=== PATIENT | female | born 1980 | race Caucasian/White ===

== ENCOUNTER 2017-05-07 05:52 | Inpatient (IN) | payer OTHER ==
[2017-05-06 13:40] LABS: ABS Basophils 0 10^3/ul (0-0.2); ABS Eosinophils 0.1 10^3/ul (0-0.6); ABS Lymphocytes 1.3 10^3/ul (1.0-4.8); ABS Monocytes 0.4 10^3/ul (0-0.8); ABS Neutrophils 6.8 10^3/ul (1.5-7.7); ABS Nucleated RBC 0 10^3/ul; Eosinophil % 1.1 % (0-6); Hematocrit 30 % (35-47); Hemoglobin 9.9 g/dl (12.0-16.0); Lymphocyte % 14.5 % (25-47); Mean Corpuscular HGB Conc 34 g/dl (31-36); Mean Corpuscular Hemoglobin 28 pg (27-31); Mean Corpuscular Volume 82 fL (80-97); Mean Platelet Volume 9 um3 (7.4-10.4); Nucleated Red Blood Cells % 0; Platelet Count 179 10^3/ul (150-450); Red Blood Count 3.61 10^6/ul (4.0-5.4); Red Cell Distribution Width 15 % (10.5-15); White Blood Count 8.7 10^3/ul (3.5-10.8)
--- NOTE | 2017-05-06 19:09 | HP ---
General Information - General Information Maternal Age: 36 Grav: 2 Para: 1 SAB: 0 IEA: 0 Estimated Due Date: 05/09/17 Determined By: Early Ultrasound Gestational Age in Weeks and Days: 39 Weeks and 4 Days Maternal Blood Type and Rh: O Positive - Results this Serology/RPR Result: Non-Reactive Rubella Result: Immune HBsAg Result: Negative HIV Result: Negative GBS Culture Result: Positive Past Medical History Delivery History: Hx C/Section Delivery History Comment: 2016 Full Term Section for Arrest descent, Female Infant weghing 10 lbs , 7oz. Pertinent Past Medical History: See Records Past Medical History Comment: induced hypertension, Migraine headaches, Herniated discs L5-S1, Obesity Pertinent Past Surgical History: See Records Pertinent Family History: See Records - Antepartal Records Antepartal Records: Reviewed, Complicated by: - Advanced Maternal Age , Obesity, Prior Section Review of Systems Constitutional: Comfortable CV Complaint: No Respiratory: Shortness of Breath: No Gastrointestinal: No Nausea/Vomiting, Normal Bowel Movement Genitourinary: No Dysuria, No Bleeding, No Leaking Fluid Musculoskeletal: No Complaint Neurological: No Headache, No Visual Changes Movement: Normal Exam Allergies/Adverse Reactions: Allergies morphine Allergy (Verified 05/06/17 19:13) Shortness of Breath Tree Nuts Allergy (Verified 05/06/17 13:44) Anaphylatic Shock Temp 98.7 BP 140/84 [id number] Lab Values - Entire Visit: Laboratory Tests 05/06/17 05/06/17 13:20 13:20 WBC 8.7 RBC 3.61 L Hgb 9.9 L Hct 30 L MCV 82 MCH 28 MCHC 34 RDW 15 Plt Count 179 MPV 9 Neut % (Auto) 78.8 Lymph % (Auto) 14.5 L Ellis % (Auto) 5.1 Eos % (Auto) 1.1 Baso % (Auto) 0.5 Absolute Neuts (auto) 6.8 Absolute Lymphs (auto) 1.3 Absolute Monos (auto) 0.4 Absolute Eos (auto) 0.1 Absolute Basos (auto) 0 Absolute Nucleated RBC 0 Nucleated RBC % 0 Blood Type O Positive Antibody Screen Negative - Measurements Height: 5 ft 9.5 in Weight: 290 lb Weight in lbs: 290 Body Mass Index (BMI): 42.2 Pre- Weight: 290 lb Weight Gained This : 0 lbs and 0 ozs - Exam Abdomen: No Upper Quadrant Pain Breast: Breast Exam Deferred CVA: No CVA Tenderness Extremities: No Edema Heart: Normal Rhythm/Heart Sounds HEENT: No Significant Findings Lungs: Clear Bilaterally Rectal: Rectal Exam Deferred Reflexes: DTR 2+ Thyroid: No Thyromegaly - Abdominal Exam Abdomen Exam: Non-Tender, Fundal Height Consistent with Dates - Membranes Membrane Status: Intact EFM Findings - External Monitor Findings Baseline Heart Rate: 140 Contractions: None - Exam done on 04/29/17 patient not in labor Assessment/Plan - Reason for Visit Reason for Visit: Intrauterine at 39 5/7 weeks with a prior Section, BMI 42, admitted for a planned Repeat Section - Obstetrical Risk Factors Obstetrical Risk Factors: GBS Positive, Obesity Risk Factors Comment: Iron Deficiency anemia - Date/Time of Admission Date of Admission: 05/07/17 Time of Admission: 07:00
[~2017-05-07 05:52] MED LIST: Buffered Lidocaine 0.9% SYRIN* 5 ML/SYR SYRINGE INTRADERM ONE
[2017-05-07] MEDS ORDERED: Sodium Citrate/Citric Acid* 15 ML UDC PO ONE (06:00)
[2017-05-07] MEDS ORDERED: Scopolamine 1.5 mg* PATCH TRANSDERM ONE (06:00)
[2017-05-07] MEDS ORDERED: Lidocaine 1% MPF* 2 ML VIAL ONE (07:06)
[2017-05-07] MEDS ORDERED: Morphine PF AMP (0.5MG/ML)* 5 MG/10 ML AMP ONE (07:40)
[2017-05-07] MEDS ORDERED: Dexamethasone IV* 4 MG/ML 1 ML (4 MG) ONE (07:42)
[2017-05-07] MEDS ORDERED: Ondansetron INJ* 2 MG/ML VIAL ONE (07:42)
[2017-05-07] MEDS ORDERED: OXYTOCIN* 10 UNITS/ML 1 ML VIAL ONE (07:42)
[2017-05-07] MEDS ORDERED: ceFOXitin 2 GM IVPREMIX* 2 GM/50 ML BAG IVPB ONE (07:45)
[2017-05-07] MEDS ORDERED: EPHEDrine (Pressors)* 50 MG/ML VIAL ONE (08:18)
[2017-05-07] MEDS ORDERED: Phenylephrine IV* 40 MCG/ML 10 ML SYRINGE ONE (08:21)
[2017-05-07] MEDS ORDERED: Witch Hazel PAD* JAR TOPICAL PRN (09:30)
[2017-05-07] MEDS ORDERED: Glycerin ADULT SUPP PR PRN (09:30)
[2017-05-07] MEDS ORDERED: Acetaminophen TAB* 325 MG PO PRN (09:30)
[2017-05-07] MEDS ORDERED: Zolpidem TAB* 5 MG PO PRN (09:30)
[2017-05-07] MEDS ORDERED: Dibucaine 1% 28.35 GM TUBE PR PRN (09:30)
[2017-05-07] MEDS ORDERED: fentaNYL* 50 MCG/ML 2 ML VIAL (100 MCG VIAL) IV PRN (09:36)
[2017-05-07] MEDS ORDERED: PROCHLORPERAZINE INJ 5 MG/ML 2 ML VIAL IV PRN ×2 (09:36→09:38)
[2017-05-07] MEDS ORDERED: Nalbuphine* 20 MG/ML 1 ML VIAL IV PRN ×2 (09:36→09:38)
[2017-05-07] MEDS ORDERED: Naloxone* 0.4 MG/ML 1 ML VIAL IV PRN ×2 (09:36→09:38)
[2017-05-07] MEDS ORDERED: oxyCODONE TAB* 5 MG TAB PO PRN ×2 (09:36→09:38)
[2017-05-07] MEDS ORDERED: Acetaminophen IV 1GM/100ML * 1,000 MG/100 ML VIAL IVPB ONE (09:36)
[2017-05-07] MEDS ORDERED: Scopolamine 1.5 mg* PATCH TRANSDERM PRN (09:38)
[2017-05-07] MEDS ORDERED: Ondansetron INJ* 2 MG/ML VIAL IV PRN (09:38)
[2017-05-07] MEDS ORDERED: Scopolamine PATCH Remove* 1 NOTE MISC PATCH OFF PRN (09:38)
[2017-05-07] MEDS ORDERED: Ketorolac INJ* 30 MG/ML 1 ML VIAL IV SCH (10:00)
[2017-05-07] MEDS: Docusate CAP* 100 MG PO SCH ×2 (13:51→21:20)
[2017-05-07] MEDS: Simethicone TAB* 80 MG TAB.CHEW PO SCH ×2 (13:51→21:20)
[2017-05-07] MEDS: Ketorolac INJ* 30 MG/ML 1 ML VIAL IV SCH ×2 (16:42→22:55)
[2017-05-08] MEDS: Acetaminophen TAB* 325 MG PO SCH ×2 (02:18→02:20)
[2017-05-08] MEDS: oxyCODONE/Acetamin 5/325 MG* TAB PO PRN ×4 (04:13→23:24)
[2017-05-08] MEDS: Ketorolac INJ* 30 MG/ML 1 ML VIAL IV SCH (04:47)
[2017-05-08 07:02] LABS: ABS Basophils 0 10^3/ul (0-0.2); ABS Eosinophils 0 10^3/ul (0-0.6); ABS Lymphocytes 1.5 10^3/ul (1.0-4.8); ABS Monocytes 0.9 10^3/ul (0-0.8); ABS Nucleated RBC 0 10^3/ul; Eosinophil % 0.3 % (0-6); Hematocrit 22 % (35-47); Hemoglobin 7.5 g/dl (12.0-16.0); Lymphocyte % 13.3 % (25-47); Mean Corpuscular HGB Conc 34 g/dl (31-36); Mean Corpuscular Hemoglobin 28 pg (27-31); Mean Corpuscular Volume 82 fL (80-97); Mean Platelet Volume 10 um3 (7.4-10.4); Nucleated Red Blood Cells % 0.1; Platelet Count 148 10^3/ul (150-450); Red Blood Count 2.66 10^6/ul (4.0-5.4); Red Cell Distribution Width 15 % (10.5-15); White Blood Count 11.6 10^3/ul (3.5-10.8)
[2017-05-08] MEDS: Ferrous Gluconate TAB* 324 MG TAB PO SCH ×2 (08:00→21:05)
[2017-05-08] MEDS: Simethicone TAB* 80 MG TAB.CHEW PO SCH ×4 (08:01→21:04)
[2017-05-08] MEDS: Docusate CAP* 100 MG PO SCH ×3 (09:09→21:05)
[2017-05-08] MEDS: Ibuprofen TAB* 600 MG PO PRN ×2 (15:03→21:03)
--- NOTE | 2017-05-09 01:14 | OP ---
DATE OF OPERATION: 05/07/17 - ROOM #116 DATE OF : 80 SURGEON: Anthony Merino MD SIGN ERECTOR SURGEON: Parrish Araiza MD ANESTHESIA: Spinal. PRE-OP DIAGNOSES: at 39 weeks, advanced maternal age, maternal obesity, and desires surgical sterilization. POST-OP DIAGNOSES: at 39 weeks, advanced maternal age, maternal obesity, and desires surgical sterilization. OPERATIVE PROCEDURE: Repeat low transverse section and bilateral tubal ligation via fimbriectomy. ESTIMATED BLOOD LOSS: 700 cc. FLUIDS: She received 2700 cc of IV crystalloid fluid. URINE OUTPUT: Clear. SPECIMEN SENT TO PATHOLOGY: Portions of the right and left fimbriae. FINDINGS: Delivery of a female weighing 9 pounds and 4 ounces with Apgars of 9 and 9. The placenta was grossly intact with a 3-vessel cord noted. The uterus, adnexa, bowel, and bladder were within normal limits. There were no complications. DESCRIPTION OF PROCEDURE: The patient was taken to the operating room, where she was identified. She was placed on the operating table, where a spinal anesthetic was obtained without difficulty. She was then placed in the supine position with a leftward tilt, prepped and draped in the normal sterile fashion. A Pfannenstiel skin incision was then made with a knife and carried through the underlying layer of fascia. The fascia was nicked in the midline and extended laterally with curved Staton scissors. The fascia was then grasped superiorly with Chen clamps and dissected off sharply from the rectus muscle. The same was done inferiorly. The rectus muscle was then in the midline bluntly. The peritoneum was identified, grasped with pickups, and entered sharply with Metzenbaum scissors, and extended superiorly, inferiorly bluntly. A bladder blade was inserted into the patient's abdomen and a bladder flap was created over which the bladder blade was then reinserted. A low transverse uterine incision was then made with a knife and extended laterally with bandage scissors. The amniotic sac was ruptured. The 's head was then grasped and delivered atraumatically. The rest of the body was then delivered. The cord was clamped and cut, and the was handed off to awaiting assistant public defender. Cord bloods were obtained. The placenta was removed manually. The uterus was then exteriorized and cleared of all clots and debris using moist laparotomy sponges. The uterine incision was then closed using 0 Polysorb suture in a running locked fashion with the second imbricating layer of 0 Polysorb suture with good hemostasis noted. At this point, attention was then brought on to fallopian tubes where the bilateral fimbriectomy was performed using 3-0 Polysorb sutures in a usual fashion and fimbriae were sent to Pathology. The uterus was then returned to the patient's abdomen. The gutters were then cleared of all clot and debris using moist laparotomy sponges. The uterine incision was noted to be clear. All the sponges and instruments were removed from the patient's abdomen. The peritoneum was then closed using 3-0 Polysorb suture in a running fashion. The fascia was closed using 0 Polysorb suture in a running fashion. Anabella's fascia was closed using 3 -0 Polysorb interrupted stitches, and the skin was closed with 4-0 Monocryl subcuticular stitch. The patient tolerated the procedure well. Sponge , lap, and needle counts were correct x2. She was then transferred to the recovery room area in stable condition. [id number]/[facility] #: [id number] [facility] HEALTH SYSTEMTammie
[2017-05-09] MEDS: oxyCODONE/Acetamin 5/325 MG* TAB PO PRN ×5 (03:19→22:19)
[2017-05-09] MEDS: Ibuprofen TAB* 600 MG PO PRN ×2 (03:19→09:41)
[2017-05-09] MEDS: Simethicone TAB* 80 MG TAB.CHEW PO SCH ×5 (08:45→22:18)
[2017-05-09] MEDS: Ferrous Gluconate TAB* 324 MG TAB PO SCH ×2 (08:45→22:18)
[2017-05-09] MEDS: Docusate CAP* 100 MG PO SCH ×3 (08:46→22:18)
[2017-05-10] MEDS: oxyCODONE/Acetamin 5/325 MG* TAB PO PRN ×2 (03:34→08:24)
[2017-05-10] MEDS ORDERED: Scopolamine PATCH Remove* 1 NOTE MISC PATCH OFF ONE (06:00)
[2017-05-10] MEDS: Ferrous Gluconate TAB* 324 MG TAB PO SCH (08:24)
[2017-05-10] MEDS: Docusate CAP* 100 MG PO SCH (08:24)
[2017-05-10] MEDS: Simethicone TAB* 80 MG TAB.CHEW PO SCH (08:24)
[2017-05-10 09:49] VITALS: BP 139/70
== END 2017-05-10 11:26 | disposition home or self-care (01) | DRG 540 ==
LOC: MCHOB 05:52
PROVIDERS: ADMIT Obstetrics & Gynecology; ATTEND Obstetrics & Gynecology
PROC: 4A1HXCZ Monitoring of Products of Conception, Cardiac Rate, External Approach (ICD-10-PCS; 2017-05-07)
PROC: 0UB70ZZ Excision of Bilateral Fallopian Tubes, Open Approach (ICD-10-PCS; 2017-05-07)
PROC: 10D00Z1 Extraction of Products of Conception, Low, Open Approach (ICD-10-PCS; principal; 2017-05-07 07:45)
DX: O34.211 Maternal care for low transverse scar from previous cesarean delivery (principal); Z68.41 Body mass index [BMI] 40.0-44.9, adult; E66.01 Morbid (severe) obesity due to excess calories; O99.824 Streptococcus B carrier state complicating childbirth; O99.214 Obesity complicating childbirth; Z3A.39 39 weeks gestation of pregnancy; Z37.0 Single live birth; Z88.5 Allergy status to narcotic agent; Z30.2 Encounter for sterilization; O90.81 Anemia of the puerperium
CPT/HCPCS: 36415; 85025; 86850; 86900; 86901; 88305; A9270-GY; J0694; J1100; J1885; J2405; J2590

== ENCOUNTER 2017-12-04 23:23 | Emergency (ER) | payer OTHER, MEDICAID ==
[2017-12-05] MEDS ORDERED: NS 0.9% 1000 ML* 1,000 ML IV ONE (00:09)
[2017-12-05] MEDS ORDERED: Ondansetron INJ* 2 MG/ML VIAL IV ONE (00:09)
[2017-12-05] MEDS ORDERED: Morphine VIAL* 10 MG/ML 1 ML VIAL IV ONE ×2 (00:39→00:41)
[2017-12-05 00:47] LABS: ABS Basophils 0 10^3/ul (0-0.2); ABS Eosinophils 0.1 10^3/ul (0-0.6); ABS Lymphocytes 1.1 10^3/ul (1.0-4.8); ABS Monocytes 0.5 10^3/ul (0-0.8); ABS Neutrophils 5.8 10^3/ul (1.5-7.7); ABS Nucleated RBC 0 10^3/ul; Eosinophil % 1.3 % (0-6); Hematocrit 35 % (35-47); Hemoglobin 11.7 g/dl (12.0-16.0); Lymphocyte % 15.3 % (25-47); Mean Corpuscular HGB Conc 33 g/dl (31-36); Mean Corpuscular Hemoglobin 28 pg (27-31); Mean Corpuscular Volume 84 fL (80-97); Mean Platelet Volume 8.9 um3 (7.4-10.4); Nucleated Red Blood Cells % 0; Platelet Count 224 10^3/ul (150-450); Red Cell Distribution Width 16 % (10.5-15); White Blood Count 7.5 10^3/ul (3.5-10.8)
[2017-12-05] MEDS ORDERED: Morphine INJ* 4 MG/ML 1 ML SYRINGE (NEW SYRINGE VERSION) IV ONE (01:00)
[2017-12-05 01:06] LABS: EGFR Non-African American 106.3 (>60)
[2017-12-05] MEDS ORDERED: Lidocaine 2% VISCOUS* 15 ML UDC PO ONE (01:45)
[2017-12-05] MEDS ORDERED: Al Hydrox/Mg Hydrox/Simet LIQ* 30 ML UDC PO ONE (01:46)
[2017-12-05] MEDS ORDERED: Iohexol 350* (CONTRAST) 500 ML MDV IV ONE (02:12)
--- NOTE | 2017-12-05 02:32 | ED ---
HPI Chest Pain - HPI Summary HPI Summary: Patient complains of sudden onset epigastric/sternal pain radiating to back at 10:45 PM tonight. Patient denies prior history of pain, describes pain as constant,, sharp, 8/10. Pain has been at same level since onset, associated with nausea and mild SOB. Denies prior cardiac history, history of blood clots , history of cancer, recent surgery or trauma, OCP or estrogen supplements, recent long travel. Denies recent chest pain or shortness of breath with exertion. Does admit to history of heartburn, GERD. Denies fever, cough, sore throat, V/D, abdominal pain, change in urine, change in BM. Medical history is none. Positive family cardiac history, mom had MN at 45. Abdominal surgical history is 1, BTL. Nonsmoker, denies EtOH, and recreational drugs. BP in triage 188/91, patient states baseline BP 120/80 - History of Current Complaint Chief Complaint: EDAbdPain Time Seen by Provider: 12/05/17 00:07 Hx Obtained From: Patient Hx Last Menstrual Period: 1 MONTH AGO Onset/Duration: Started Hours Ago Timing: Constant Initial Severity: Severe Current Severity: Severe Pain Intensity: 8 Pain Scale Used: 0-10 Numeric Chest Pain Location: Mid Sternal Chest Pain Radiates To:: Back Character: Sharp/Stabbing Aggravating Factor(s): Nothing Alleviating Factor(s): Nothing Associated Signs and Symptoms: Positive: Chest Pain, Shortness of Breath, Nausea , Back Pain - Risk Factors Pulmonary Embolism Risk Factors: Negative - Allergy/Home Medications Allergies/Adverse Reactions: Allergies Allergy/AdvReac Type Severity Reaction Status Date / Time Tree Nuts Allergy Anaphylatic Verified 12/04/17 23:33 Shock PMH/Surg Hx/FS Hx/Imm Hx Endocrine/Hematology History: Denies: Hx Anticoagulant Therapy, Hx Diabetes, Hx Thyroid Disease Cardiovascular History: Denies: Hx Cardiac Arrest, Hx Hypertension Respiratory History: Denies: Hx Asthma, Hx Chronic Obstructive Pulmonary Disease (COPD) GI History: Denies: Hx Ulcer History: Denies: Hx Dialysis, Hx Kidney Infection, Hx Renal Disease, Other Problems /Disorders Neurological History: Denies: Hx CVA Psychiatric History: Denies: Hx Anxiety, Hx Depression, Other Psychiatric Issues/Disorders - Surgical History Surgery Procedure, Year, and Place: 2005 Back Surgery Infectious Disease History: No Infectious Disease History: Denies: Hx Clostridium Difficile, Hx Hepatitis, Hx Human Immunodeficiency Virus (HIV), Hx of Known/Suspected MRSA, Hx Shingles, Hx Tuberculosis, Hx Known/ Suspected VRE, Hx Known/Suspected VRSA, History Other Infectious Disease, Traveled Outside the [place] in Last 30 Days - Social History Alcohol Use: None Substance Use Type: Reports: None Smoking Status (MU): Never Smoked Tobacco Have You Smoked in the Last Year: No Review of Systems Constitutional: Negative Eyes: Negative ENT: Negative Positive: Chest Pain Positive: Shortness Of Breath Gastrointestinal: Negative Genitourinary: Negative Musculoskeletal: Negative Skin: Negative Neurological: Negative Psychological: Normal All Other Systems Reviewed And Are Negative: Yes Physical Exam - Summary Physical Exam Summary: Chest pain reproducible. Tenderness along sternum and epigastric area. Triage Information Reviewed: Yes Vital Signs On Initial Exam: Initial Vitals Temp Pulse Resp BP Pulse Ox 97.0 F 80 16 188/91 100 12/04/17 23:28 12/04/17 23:28 12/04/17 23:28 12/04/17 23:28 12/04/17 23:28 Vital Signs Reviewed: Yes Appearance: Positive: Well-Appearing Skin: Positive: Warm Head/Face: Positive: Normal Head/Face Inspection Eyes: Positive: Normal Neck: Positive: Supple Respiratory/Lung Sounds: Positive: Clear to Auscultation Cardiovascular: Positive: Normal Abdomen Description: Positive: Nontender Musculoskeletal: Positive: Normal Neurological: Positive: Normal Psychiatric: Positive: Normal AVPU Assessment: Alert - Anthony Coma Scale Best Eye Response: 4 - Spontaneous Best Motor Response: 6 - Obeys Commands Best Verbal Response: 5 - Oriented Coma Scale Total: 15 Diagnostics - Vital Signs Vital Signs Temp Pulse Resp BP Pulse Ox 12/05/17 00:59 18 12/04/17 23:28 97.0 F 80 16 188/91 100 - Laboratory Lab Results: Lab Results 12/05/17 12/05/17 12/05/17 Range/Units 00:33 00:33 00:33 WBC 7.5 (3.5-10.8) 10^3/ul RBC 4.20 (4.00-5.40) 10^6/ul Hgb 11.7 L (12.0-16.0) g/dl Hct 35 (35-47) % MCV 84 (80-97) fL MCH 28 (27-31) pg MCHC 33 (31-36) g/dl RDW 16 H (10.5-15) % Plt Count 224 (150-450) 10^3/ul MPV 8.9 (7.4-10.4) um3 Neut % (Auto) 76.9 (38-83) % Lymph % (Auto) 15.3 L (25-47) % [place] % (Auto) 6.0 (0-7) % Eos % (Auto) 1.3 (0-6) % Baso % (Auto) 0.5 (0-2) % Absolute Neuts (auto) 5.8 (1.5-7.7) 10^3/ul Absolute Lymphs (auto) 1.1 (1.0-4.8) 10^3/ul Absolute Monos (auto) 0.5 (0-0.8) 10^3/ul Absolute Eos (auto) 0.1 (0-0.6) 10^3/ul Absolute Basos (auto) 0 (0-0.2) 10^3/ul Absolute Nucleated RBC 0 10^3/ul Nucleated RBC % 0 D-Dimer, Quantitative < 200 (Less Than 230) ng/mL Sodium 138 (135-145) mmol/L Potassium 4.0 (3.5-5.0) mmol/L Chloride 105 (101-111) mmol/L Carbon Dioxide 29 (22-32) mmol/L Anion Gap 4 (2-11) mmol/L BUN 25 H (6-24) mg/dL Creatinine 0.63 (0.51-0.95) mg/dL Est GFR ( Amer) 128.7 (>60) Est GFR (Non-Af Amer) 106.3 (>60) BUN/Creatinine Ratio 39.7 H (8-20) Glucose 112 H (70-100) mg/dL Calcium 9.1 (8.6-10.3) mg/dL Total Bilirubin 0.40 (0.2-1.0) mg/dL AST 64 H (13-39) U/L ALT 40 (7-52) U/L Alkaline Phosphatase 108 H (34-104) U/L Troponin I 0.00 (<0.04) ng/mL C-Reactive Protein 5.97 (<8.01) mg/L Total Protein 7.1 (6.4-8.9) g/dL Albumin 4.1 (3.2-5.2) g/dL Globulin 3.0 (2-4) g/dL Albumin/Globulin Ratio 1.4 (1-3) Lipase 17 (11.0-82.0) U/L TSH (0.34-5.60) mcIU/mL Beta HCG, Quant < 0.60 mIU/mL 12/05/17 Range/Units 00:33 WBC (3.5-10.8) 10^3/ul RBC (4.00-5.40) 10^6/ul Hgb (12.0-16.0) g/dl Hct (35-47) % MCV (80-97) fL MCH (27-31) pg MCHC (31-36) g/dl RDW (10.5-15) % Plt Count (150-450) 10^3/ul MPV (7.4-10.4) um3 Neut % (Auto) (38-83) % Lymph % (Auto) (25-47) % [place] % (Auto) (0-7) % Eos % (Auto) (0-6) % Baso % (Auto) (0-2) % Absolute Neuts (auto) (1.5-7.7) 10^3/ul Absolute Lymphs (auto) (1.0-4.8) 10^3/ul Absolute Monos (auto) (0-0.8) 10^3/ul Absolute Eos (auto) (0-0.6) 10^3/ul Absolute Basos (auto) (0-0.2) 10^3/ul Absolute Nucleated RBC 10^3/ul Nucleated RBC % D-Dimer, Quantitative (Less Than 230) ng/mL Sodium (135-145) mmol/L Potassium (3.5-5.0) mmol/L Chloride (101-111) mmol/L Carbon Dioxide (22-32) mmol/L Anion Gap (2-11) mmol/L BUN (6-24) mg/dL Creatinine (0.51-0.95) mg/dL Est GFR ( Amer) (>60) Est GFR (Non-Af Amer) (>60) BUN/Creatinine Ratio (8-20) Glucose (70-100) mg/dL Calcium (8.6-10.3) mg/dL Total Bilirubin (0.2-1.0) mg/dL AST (13-39) U/L ALT (7-52) U/L Alkaline Phosphatase (34-104) U/L Troponin I (<0.04) ng/mL C-Reactive Protein (<8.01) mg/L Total Protein (6.4-8.9) g/dL Albumin (3.2-5.2) g/dL Globulin (2-4) g/dL Albumin/Globulin Ratio (1-3) Lipase (11.0-82.0) U/L TSH 1.47 (0.34-5.60) mcIU/mL Beta HCG, Quant mIU/mL Result Diagrams: 12/05/17 00:33 12/05/17 00:33 Lab Statement: Any lab studies that have been ordered have been reviewed, and results considered in the medical decision making process. Chest Pain Course/Dx - Course Course Of Treatment: Patient complains of sudden onset epigastric/sternal pain radiating to back at 10:45 PM tonight. Patient denies prior history of pain, describes pain as constant,, sharp, 8/10. Pain has been at same level since onset, associated with nausea and mild SOB. Denies prior cardiac history, history of blood clots, history of cancer, recent surgery or trauma, OCP or estrogen supplements, recent long travel. Denies recent chest pain or shortness of breath with exertion. Does admit to history of heartburn, GERD. Denies fever, cough, sore throat, V/D, abdominal pain, change in urine, change in BM. Medical history is none. Positive family cardiac history, mom had MN at 45. Abdominal surgical history is 1, BTL. Nonsmoker, denies EtOH , and recreational drugs. BP in triage 188/91, patient states baseline BP 120/ 80. Physical exam:Chest pain reproducible. Tenderness along sternum and epigastric area. After initial elevated BP, vital signs are now within normal limits. Chest x-ray unremarkable. Labs unremarkable, including lipase. EKG unremarkable. Will sign patient out to Dr. Brarios pending results of CTA. - Diagnoses Provider Diagnoses: Cholelithiasis Discharge - Sign-Out/Discharge Documenting (check all that apply): Sign-Out Patient Signing out patient TO: Mari Barrios - Discharge Plan Condition: Stable Disposition: HOME Prescriptions: Metoclopramide TAB* [Reglan TAB*] 10 mg PO Q6H PRN #14 tab PRN Reason: Nausea/Vomiting oxyCODONE/Acetamin 5/325 MG* [Percocet 5/325 TAB*] 1 tab PO Q6H PRN #14 tab MDD 4 PRN Reason: Pain Patient Education Materials: Gallstones (ED) Referrals: Mukesh Bach MD [Medical Doctor] - 2 Days Additional Instructions: RETURN TO THE EMERGENCY DEPARTMENT FOR CHANGING OR WORSENING SYMPTOMS. FOLLOW UP WITH SURGEON IN 1-2 DAYS. - Billing Disposition and Condition Condition: STABLE Disposition: Home
--- NOTE | 2017-12-05 03:01 | RAD ---
EXAM: CT Angiography Chest With Intravenous Contrast CLINICAL HISTORY: 37 years old, female; Pain; Other: Epigastric radiating to back; Abdominal pain; Prior surgery; Surgery date: 6+ months; Surgery type: Back SX; Additional info: Epigastric pain radiating to back, elevated BP TECHNIQUE: Axial computed tomographic angiography images of the chest with intravenous contrast using pulmonary embolism protocol. All CT scans at this facility use at least one of these dose optimization techniques: automated exposure control; mA and/or kV adjustment per patient size (includes targeted exams where dose is matched to clinical indication); or iterative reconstruction. 3D and MIP reconstructed images were created and reviewed. Coronal and sagittal reformatted images were created and reviewed. CONTRAST: 100 mL of OMNIPAQUE 350 administered intravenously. COMPARISON: No relevant prior studies available. FINDINGS: Pulmonary arteries: Pulmonary arteries are well opacified to the subsegmental branches. Normal caliber main pulmonary artery. No filling defects throughout the pulmonary artery tree. Aorta: Normal caliber aorta with no evidence of dissection or rupture. Lungs: No pulmonary nodules, masses, or consolidations. No bronchiectasis, peribronchial thickening, or luminal defects. Pleural space: Normal. No significant effusion. No pneumothorax. Heart: Normal. No cardiomegaly. No significant pericardial effusion. No evidence of RV dysfunction. Thyroid: No thyroid nodules. Bones/joints: No fractures. No suspicious bone lesions. No dislocation. Soft tissues: Normal. Lymph nodes: Normal. No enlarged lymph nodes. IMPRESSION: 1. No aortic aneurysm, dissection, or rupture. 2. No pulmonary emboli. EXAM: CT Angiography Abdomen and Pelvis With Intravenous Contrast CLINICAL HISTORY: 37 years old, female; Pain; Other: Epigastric radiating to back; Abdominal pain; Prior surgery; Surgery date: 6+ months; Surgery type: Back SX; Additional info: Epigastric pain radiating to back, elevated BP TECHNIQUE: Axial computed tomographic angiography images of the abdomen and pelvis with intravenous contrast. All CT scans at this facility use at least one of these dose optimization techniques: automated exposure control; mA and/or kV adjustment per patient size (includes targeted exams where dose is matched to clinical indication); or iterative reconstruction. 3D and MIP reconstructed images were created and reviewed. Coronal and sagittal reformatted images were created and reviewed. CONTRAST: 100 mL of OMNIPAQUE 350 administered intravenously. 100 mL of OMNIPAQUE 350 administered intravenously. COMPARISON: No relevant prior studies available. FINDINGS: VASCULATURE: Aorta: Normal caliber aorta with no evidence of dissection or rupture. Celiac trunk and mesenteric arteries: Normal. No occlusion or stenosis. Renal arteries: Normal. No occlusion or significant stenosis. Iliac arteries: Normal. No occlusion or stenosis. Inferior vena cava: Patent IVC. Lung bases: Normal. No mass. No consolidation. ABDOMEN: Liver: Normal hepatic size and attenuation with no focal lesions. Gallbladder and bile ducts: Multiple gas containing gallstones. No wall thickening or pericholecystic fluid. No intra-or extrahepatic biliary dilation. Pancreas: Normal. No ductal dilation. No mass. Spleen: Normal. No splenomegaly. Adrenals: Normal. No mass. Kidneys and ureters: Normal. No hydronephrosis. No solid mass. Stomach and bowel: Incompletely distended grossly normal stomach. Normal caliber small bowel. No colonic masses or segmental wall thickening. PELVIS: Appendix: Normal caliber appendix without wall thickening or adjacent inflammation. Bladder: Thin-walled bladder with no focal nodularity, perivesicular stranding, or calcifications. Reproductive: Right ovarian cyst measuring 3.5 cm which does not measure simple fluid. Normal uterus and left ovary ABDOMEN and PELVIS: Intraperitoneal space: Normal. No significant fluid collection. No free air. Bones/joints: Right L5 laminectomy with L5-S1 discectomy. No fractures. No suspicious bone lesions. No dislocation. Soft tissues: Normal. No hernias. Lymph nodes: Normal. No enlarged lymph nodes. IMPRESSION: 1. No aortic aneurysm, dissection, or rupture. 2. Cholelithiasis. 3. Right ovarian likely hemorrhagic cyst. ACR White Paper guidelines (Weiss, et. al. JACR 2013; 10(9):675-681) suggest pelvic ultrasound follow-up in 6-12 weeks. To contact [facility] with a general question: Operations Center - [phone] For direct physician to physician contact: Physician Hotline - [phone] at [place] ([facility] Facility ID #[id number])
--- NOTE | 2017-12-05 04:20 | ED ---
Progress - Progress Note Progress Note: Pt was signed out by Ethan Pickett to Dr. Barrios, pending CTA results. - Results/Orders Results/Orders: C/A/P CTA, as per radiologist, 1. No aortic aneurysm, dissection, or rupture. 2. Cholelithiasis. ED Physician has reviewed this report Course/Dx - Course Course Of Treatment: CTA confirms cholelithiasis. Pt will be discharged home and advised to see a surgeon. Pt will be sent home with a prescription for Oxycodone and Metoclopramide. Patient is agreeable with this plan. - Diagnoses Provider Diagnoses: Cholelithiasis Discharge - Sign-Out/Discharge Documenting (check all that apply): Patient Departure - discharge, Receiving Sign-Out Receiving patient FROM: Ethan Pickett - Discharge Plan Condition: Stable Disposition: HOME Prescriptions: Metoclopramide TAB* [Reglan TAB*] 10 mg PO Q6H PRN #14 tab PRN Reason: Nausea/Vomiting oxyCODONE/Acetamin 5/325 MG* [Percocet 5/325 TAB*] 1 tab PO Q6H PRN #14 tab MDD 4 PRN Reason: Pain Patient Education Materials: Gallstones (ED) Referrals: Mukesh Bach MD [Medical Doctor] - 2 Days Additional Instructions: RETURN TO THE EMERGENCY DEPARTMENT FOR CHANGING OR WORSENING SYMPTOMS. FOLLOW UP WITH SURGEON IN 1-2 DAYS. - Attestation Statements Document Initiated by Scribe: Yes Documenting Scribe: Richard Doshi Provider For Whom Scribe is Documenting (Include Credential): Mari Barrios MD Scribe Attestation: Richard Watkins, scribed for Mari Barrios MD on 12/05/17 at 0417.
[2017-12-05 04:31] VITALS: BP 146/93
--- NOTE | 2017-12-05 07:41 | RAD ---
HISTORY: cp, sob COMPARISONS: April 21, 2013 VIEWS: 1: frontal AP view of the chest at 12:40 AM FINDINGS: LINES AND TUBES: None. CARDIOMEDIASTINAL SILHOUETTE: The cardiomediastinal silhouette is normal for portable technique. PLEURA: The costophrenic angles are sharp. No pleural abnormalities are noted. LUNG PARENCHYMA: The lung volumes are low. The lungs are clear accounting for the phase of respiration. ABDOMEN: The upper abdomen is clear. There is no subphrenic gas. BONES AND SOFT TISSUES: No bone or soft tissue abnormalities are noted. IMPRESSION: LOW LUNG VOLUMES. NO ACTIVE CARDIOPULMONARY DISEASE. R1
== END 2017-12-05 04:33 | disposition home or self-care (01) ==
LOC: ED 23:23
DX: K80.20 Calculus of gallbladder without cholecystitis without obstruction (principal); R10.13 Epigastric pain; R07.9 Chest pain, unspecified; R06.02 Shortness of breath; R11.0 Nausea; M54.9 Dorsalgia, unspecified
CPT/HCPCS: 36415; 71045; 71275; 74174; 80053; 83690; 83880; 84443; 84484; 84702; 85025; 85379; 86140; 93005; 96361; 96374; 96375; 99283; J2270; J2405; Q9967

== ENCOUNTER → 2017-12-24 09:04 | Day surgery (SDC) | payer OTHER, MEDICAID ==
[~2017-12-24 09:04] MED LIST changes: +Bupivacaine 0.25% SDV* 30 ML ONE; +Cisatracurium* 2 MG/ML MDV 5 ML ONE; +Dexamethasone IV* 4 MG/ML 1 ML (4 MG) ONE; +DiMENhydriNATE IV* 50 MG/ML VIAL IV PUSH PRN; +Famotidine IV* 10 MG/ML 2 ML (20 mg) IV ONE; +Famotidine IV* 10 MG/ML 2 ML (20 mg) ONE; +Glycopyrrolate IV* 0.2 MG/ML 1 ML VIAL ONE; +HYDROmorphone INJ1* 1 MG/ML SYRINGE IV PRN; +HYDROmorphone INJ1* 1 MG/ML SYRINGE ONE; +KETAMINE HCL* 50 MG/ML 10 ML VIAL ONE; +Ketorolac INJ* 30 MG/ML 1 ML VIAL ONE; +Lidocaine 2% PF * 5 ML VIAL ONE; +Metoclopramide IV* 5 MG/ML 2 ML VIAL ONE; +Midazolam* 1 MG/ML 5 ML VIAL (5 MG) ONE; +Naloxone* 0.4 MG/ML 1 ML VIAL IV PRN; +Neostigmine Methylsulfate* 1 MG/ML 10 ML VIAL (1 mg/ml) ONE; +Ondansetron INJ* 2 MG/ML VIAL IV PRN; +Ondansetron INJ* 2 MG/ML VIAL ONE; +Propofol* 10 MG/ML 20 ML BTL IV PUSH ONE; +ceFOXitin 2 GM IVPREMIX* 2 GM/50 ML BAG ONE; +fentaNYL* 50 MCG/ML 2 ML VIAL (100 MCG VIAL) IV PRN; +fentaNYL* 50 MCG/ML 2 ML VIAL (100 MCG VIAL) ONE; +oxyCODONE/Acetamin 5/325 MG* TAB ONE; +oxyCODONE/Acetamin 5/325 MG* TAB PO PRN
--- NOTE | 2017-12-24 13:32 | OP ---
Operative Report - Blank - Operative Report Date of Operation: 12/24/17 Note: Brief Operative Note Preop Dx: symptomatic cholelithiasis Postop Dx: same Procedure: laparoscopic cholecystectomy Anesthesia: GET Surgeon: Maldonado Derivatives Trader: JOSHUA Bowen Fluids: 1750 ml crystalloid EBL: < 100 ml Specimen: gallbladder Drains: none Findings: dictated
[2017-12-24 15:01] VITALS: BP 153/95
--- NOTE | 2017-12-25 08:39 | OP ---
CC: Sharita Boland MD * DATE OF OPERATION: 12/24/17 - [facility] DATE OF : 80 SURGEON: Albaro Okeefe MD HOME OFFICE CLAIM SPECIALIST: JOSHUA Pak ANESTHESIOLOGIST: Get De La O MD ANESTHESIA: General endotracheal. PRE-OP DIAGNOSIS: Symptomatic cholelithiasis. POST-OP DIAGNOSIS: Symptomatic cholelithiasis. OPERATIVE PROCEDURE: Laparoscopic cholecystectomy. ESTIMATED BLOOD LOSS: Less than 100 mL. IV FLUIDS: 1.75 L of crystalloid. SPECIMENS: Gallbladder. DRAINS: None. COMPLICATIONS: None. COUNTS: The instrument, needle, and sponge counts were correct. DESCRIPTION OF PROCEDURE: The patient was brought to the operating room and placed on table supine. Sequential compression devices were placed on both lower extremities. General anesthesia was administered. She was positioned and padded appropriately. She had received appropriate intravenous antibiotics. She was prepped and draped in the usual sterile fashion and then time-out was performed. Local anesthetic was infiltrated into the skin and soft tissue prior to making each incision. Entry into the abdomen was through an infraumbilical incision using an open technique. After accessing the peritoneal cavity, a 5-mm trocar was placed and carbon dioxide was insufflated to a pressure of 15 mmHg. Under direct visualization, additional 5-mm trocars were placed in the subxiphoid position and 2 in the right upper quadrant. The initial trocar in the umbilical site was exchanged for a 12-mm trocar. Indocyanine green injection had been performed prior to the surgery. This enabled visualization of the biliary system during the case. The gallbladder was identified. The fundus was retracted cephalad. The infundibulum was identified, it was grasped and elevated and blunt and sharp dissection were used to incise the peritoneum investing the infundibular area. There appeared to be a fold at the infundibulum and this was taken down using a combination of sharp and blunt techniques and dissection proceeded along the cystic duct until a critical view was obtained. The cystic artery was also able to be dissected out bluntly. This was doubly clipped and divided. The cystic duct was doubly clipped and divided and the gallbladder was freed from attachments to the liver using the hook cautery, staying in an avascular plane. At one point, the gallbladder was entered and spillage was controlled with placement of endoscopic clips as well as endoscopic suction. After the gallbladder was freed, it was placed in an endoscopic retrieval bag and retrieved through the umbilical site. Hemostasis was assured in the liver bed, the clips were noted to be intact as well. Copious lavage was performed in the right upper quadrant until clear. The ports were removed under direct visualization and carbon dioxide was released. The infraumbilical wound was closed with interrupted 0 Vicryl suture. Skin incisions were closed with 4-0 Monocryl. Steri-Strips were applied. The patient was extubated uneventfully and transferred to the recovery room in stable condition. [id number]/[facility] #: [id number] ROBER
== END | disposition home or self-care (01) ==
LOC: OR 09:04
PROVIDERS: ATTEND Surgery
DX: K80.10 Calculus of gallbladder with chronic cholecystitis without obstruction (principal); K21.9 Gastro-esophageal reflux disease without esophagitis; J30.2 Other seasonal allergic rhinitis; Z85.820 Personal history of malignant melanoma of skin
CPT/HCPCS: 81025; 88304; A9270-GY; J0694; J1100; J1170; J1885; J2250; J2405; J2704; J2710; J2765; J3010

== ENCOUNTER → 2018-01-08 18:18 | Emergency (ER) | payer OTHER, MEDICAID ==
[~2018-01-08 18:18] MED LIST changes: -Buffered Lidocaine 0.9% SYRIN* 5 ML/SYR SYRINGE INTRADERM ONE; -Bupivacaine 0.25% SDV* 30 ML ONE; -Cisatracurium* 2 MG/ML MDV 5 ML ONE; -Dexamethasone IV* 4 MG/ML 1 ML (4 MG) ONE; -DiMENhydriNATE IV* 50 MG/ML VIAL IV PUSH PRN; -Famotidine IV* 10 MG/ML 2 ML (20 mg) IV ONE; -Famotidine IV* 10 MG/ML 2 ML (20 mg) ONE; -Glycopyrrolate IV* 0.2 MG/ML 1 ML VIAL ONE; -HYDROmorphone INJ1* 1 MG/ML SYRINGE IV PRN; -HYDROmorphone INJ1* 1 MG/ML SYRINGE ONE; +Iohexol 300* (CONTRAST) 10 ML SDV IV ONE; -KETAMINE HCL* 50 MG/ML 10 ML VIAL ONE; +Ketorolac INJ* 30 MG/ML 1 ML VIAL IV PUSH ONE; -Ketorolac INJ* 30 MG/ML 1 ML VIAL ONE; -Lidocaine 2% PF * 5 ML VIAL ONE; -Metoclopramide IV* 5 MG/ML 2 ML VIAL ONE; -Midazolam* 1 MG/ML 5 ML VIAL (5 MG) ONE; -Naloxone* 0.4 MG/ML 1 ML VIAL IV PRN; -Neostigmine Methylsulfate* 1 MG/ML 10 ML VIAL (1 mg/ml) ONE; +Omeprazole CAP* 20 MG PO ONE; +Ondansetron INJ* 2 MG/ML VIAL IV ONE; -Ondansetron INJ* 2 MG/ML VIAL IV PRN; -Ondansetron INJ* 2 MG/ML VIAL ONE; +Pantoprazole IV* 40 MG IV ONE; -Propofol* 10 MG/ML 20 ML BTL IV PUSH ONE; -ceFOXitin 2 GM IVPREMIX* 2 GM/50 ML BAG ONE; -fentaNYL* 50 MCG/ML 2 ML VIAL (100 MCG VIAL) IV PRN; -fentaNYL* 50 MCG/ML 2 ML VIAL (100 MCG VIAL) ONE; -oxyCODONE/Acetamin 5/325 MG* TAB ONE; -oxyCODONE/Acetamin 5/325 MG* TAB PO PRN
--- OUTSIDE RECORDS SUMMARY | 2018-01-08 18:30 | XMS REPORT ---
:1980 External Reference #:[id number] Author Organization [employer] Address [address] [place] [address] [place] [address] Phone [phone] Care Team Providers Name Role Phone Sharita Boland MD Primary Care Physician Unavailable Payers Type Date Identification Numbers Payment Provider Subscriber Commercial Policy Number: [id number] [facility] Nenita Weber Group Number: [id number] [facility] [id number] Group Name: [employer] [place] [address] PayID: [id number] Problems Description No Information Family History Date Family Member(s) Problem(s) Comments General Diabetes General Hypertension General Heart Disease General Cancer Social History Type Date Description Comments Marital Status Lives With Spouse 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 Multiple 0000/0 Active Tablets 1 by mouth Unknown Vitamin 000 every day Allergy 24-HR 0000/0 Active Tablets 1 tb daily Unknown 000 Vital Signs Date Vital Result Comment 12/31/2017 Heart Rate 72 /min BP Systolic Sitting 116 mmHg BP Diastolic Sitting 84 mmHg Respiratory Rate 18 /min Body Temperature 97.7 F 12/06/2017 Height 70 inches 5'10" Weight 305.00 lb Heart Rate 76 /min BP Systolic 130 mmHg BP Diastolic 80 mmHg Respiratory Rate 18 /min Body Temperature 97.9 F BMI (Body Mass Index) 43.8 kg/m2 Results Test Date Test Result H/L Range Note Laboratory test 12/24/2017 Surgical Pathology SEE RESULT BELOW 1 finding Wound Culture/Sensi 05/23/2017 Wound/Misc SEE RESULT BELOW 2 Culture-Gram Stain 1 SEE RESULT BELOW Name: NENITA WEBER : [address]: Albaro Okeefe MD Acct: [id number] Unit: [id number] AGE: 37 Location: OR Re12/24/17 SEX: F Status: [place] [facility] [place]C: [id number] [place]: 12/24/17-[address] [facility] [address]: Albaro Okeefe MD REQ: [id number] RECD: 12/24/17 STATUS: SOUT _ ORDERED: LEVEL 3 FINAL DIAGNOSIS Gallbladder, cholecystectomy: -- Chronic cholecystitis. -- Cholelithiasis. PRE-OPERATIVE DIAGNOSIS Calculus of gallbladder without cholecystitis or obstruction GROSS DESCRIPTION The specimen is received in formalin labeled, Gallbladder and Contents, and consists of a 10.8 x 3.2 x 2.7 cm focally disrupted gallbladder. The serosa is glistening smooth to wrinkled bobby-pink to green. Within the lumen there are a few yellow-brown ovoid smooth to focally bosselated choleliths ranging from 0.6 cm to 1.0 cm in greatest dimension admixed with green yellow viscid bile. The mucosa is velvety to focally reticulated bobby and the wall thickness averages 0.1 cm. Wood Carver sections, one cassette. Signed by and Reported on: Sparkle Sheehan MD 12/25/17 1556 END OF REPORT DEPARTMENT OF PATHOLOGY, [address] [place] [address] Juan Quesada M.D. Director [facility] # [id number] 2 SEE RESULT BELOW Name: NENITA WEBER : [address]: Juventino Guerin MD Acct: [id number] Unit: [id number] AGE: 36 Location: WOUND Re05/23/17 SEX: F Status: REG REF SPEC: [id number] [place]: 05/23/[address] [facility] [address]: Juventino Guerin MD REQ: [id number] RECD: 05/23/17 STATUS: BHARGAVI WREN DR: Sharita Boland MD _ SOURCE: WOUND SPDESC: ORDERED: Culture Stain Procedure Result Reported Site Wound/Misc Gram Stain Final 05/23/17- 1306 ML 1+ Epithelial Cells 4+ Neutrophils 3+ Nucleated Cells 1+ Gram Positive Cocci Wound/Misc Culture Final 05/25/17- 1122 ML Organism 1 STREP AGALACTIAE - (GROUP B) Quantity 1+ 1. STREP AGALACTIAE - (GROUP B) M.I.C. RX --------- ------ Ampicillin <=0.25 S Penicillin <=0.12 S Clindamycin R This isolate is presumed to be resistant based on detection of inducible Clindamycin resistance. Clindamycin may still be effective in some patients. Levofloxacin 1 S Linezolid 2 S * Moxifloxacin <=0.25 S * Quinupristin/Dalfopristin <=0.25 S Tetracycline >=16 R Tigecycline <=0.12 S Vancomycin <=0.5 S Imipenem-Deduced S * Ampicillin/Sulbactam-Deduced S CONTINUED ON NEXT PAGE DEPARTMENT OF PATHOLOGY, [address] [place] [address] Juan Quesada M.D. Director [facility] # [id number] Patient: NENITA WEBER [id number] (Continued) Specimen: [id number] Collected: 05/23/17-1114 Received: 05/23/17-114 (Continued) Procedure Result Reported Site Wound/Misc Culture Final (continued) 05/25/17- 1121 1. STREP AGALACTIAE - (GROUP B) (continued) M.I.C. RX --------- ------ Cefazolin-Deduced S * These antibiotics are not available in the [facility] Formulary Contact the Microbiology Department for any additional antibiotic reporting. * ML - Main Lab . END OF REPORT DEPARTMENT OF PATHOLOGY, [address] [place] [address] Juan Quesada M.D. Director [facility] # [id number] Procedures Description No Information Encounters Type Date Location Provider [facility] E/M Dx Office Visit 12/06/2017 [place], [address] K80.20 10:45a [facility] FACS Office Visit 06/11/2017 [facility] Juventino Guerin, [address] T81.32xD 10:30a [facility] B35.4 O90.81 Office Visit 06/04/2017 10:00a [facility] Juventino Guerin, [address] T81.32xA AT [facility] O90.81 B35.4 Office Visit 05/28/2017 10:15a [facility] Ju[place]ino Guerin [address] T81.32xA AT [facility] B35.4 O90.81 Office Visit 05/23/2017 10:45a [facility] Juventino Guerin [address] T81.32xA AT [facility] B35.4 O90.81 Office Visit 05/16/2017 2:45p [facility] Ju[facility]ino Guerin, [address] T81.32xA AT [facility] Claus O90.81 Plan of Care No Information Available
[2018-01-08 19:41] LABS: Urine Appearance Cloudy; Urine Blood Negative (Negative); Urine Color Yellow; Urine Ketones Negative (Negative); Urine Protein Negative (Negative); Urine Red Blood Cell Trace(0-2/hpf) (Absent); Urine Specific Gravity 1.011 (1.010-1.030); Urine Urobilinogen Negative (Negative); Urine White Blood Cell Trace(0-5/hpf) (Absent)
[2018-01-08 19:52] LABS: ABS Basophils 0 10^3/ul (0-0.2); ABS Eosinophils 0.1 10^3/ul (0-0.6); ABS Monocytes 0.7 10^3/ul (0-0.8); ABS Neutrophils 10.7 10^3/ul (1.5-7.7); ABS Nucleated RBC 0 10^3/ul; Eosinophil % 0.8 % (0-6); Hematocrit 39 % (35-47); Hemoglobin 12.8 g/dl (12.0-16.0); Lymphocyte % 8.2 % (25-47); Mean Corpuscular HGB Conc 33 g/dl (31-36); Mean Corpuscular Hemoglobin 28 pg (27-31); Mean Corpuscular Volume 85 fL (80-97); Nucleated Red Blood Cells % 0; Platelet Count 213 10^3/ul (150-450); Red Blood Count 4.54 10^6/ul (4.00-5.40); Red Cell Distribution Width 16 % (10.5-15); White Blood Count 12.5 10^3/ul (3.5-10.8)
[2018-01-08 20:18] LABS: EGFR Non-African American 132.7 (>60)
--- NOTE | 2018-01-08 20:55 | ED ---
GI/ HPI - HPI Summary HPI Summary: 37-year-old female presents with epigastric pain today. She also states she has been having chest pain and shortness of breath. She states the pain radiates to her back. She states feels similar to before she had her gallbladder removed. States she had her gallbladder removed 2 weeks ago. She denies any fevers. Admits to nausea but no vomiting. She admits to heartburn. No diarrhea or constipation. She has a follow-up with the surgeon tomorrow. Has had a normal appetite. No blood in her stool. Is not on control. no rash. No pain or swelling in calf muscles. No recent travel. - History of Current Complaint Chief Complaint: EDChestWallPain Time Seen by Provider: 01/08/18 18:38 Stated Complaint: CHEST/BACK PAIN/SOB/NAUSEA Hx Last Menstrual Period: 1 MONTH AGO Pain Intensity: 10 - Allergy/Home Medications Allergies/Adverse Reactions: Allergies Allergy/AdvReac Type Severity Reaction Status Date / Time Tree Nuts Allergy Severe Anaphylatic Verified 01/08/18 18:41 Shock PMH/Surg Hx/FS Hx/Imm Hx Endocrine/Hematology History: Denies: Hx Anticoagulant Therapy, Hx Diabetes, Hx Thyroid Disease Cardiovascular History: Denies: Hx Cardiac Arrest, Hx Hypertension Respiratory History: Denies: Hx Asthma, Hx Chronic Obstructive Pulmonary Disease (COPD) GI History: Denies: Hx Gastroesophageal Reflux Disease - r/t gall bladder, Hx Ulcer History: Denies: Hx Dialysis, Hx Kidney Infection, Hx Renal Disease, Other Problems /Disorders Sensory History: Reports: Hx Contacts or Glasses - night driving Denies: Hx Hearing Aid Opthamlomology History: Reports: Hx Contacts or Glasses - night driving Neurological History: Reports: Hx Migraine - takes excedrin migraine Denies: Hx CVA Psychiatric History: Denies: Hx Anxiety, Hx Depression, Other Psychiatric Issues/Disorders - Cancer History Hx Chemotherapy: No - Surgical History Surgery Procedure, Year, and Place: 2004 Back Surgery. . cholecystectomy Hx Anesthesia Reactions: No - just some nausea - Immunization History Immunizations Up to Date: Yes Infectious Disease History: No Infectious Disease History: Denies: Hx Clostridium Difficile, Hx Hepatitis, Hx Human Immunodeficiency Virus (HIV), Hx of Known/Suspected MRSA, Hx Shingles, Hx Tuberculosis, Hx Known/ Suspected VRE, Hx Known/Suspected VRSA, History Other Infectious Disease, Traveled Outside the [place] in Last 30 Days - Social History Alcohol Use: None Substance Use Type: Reports: None Smoking Status (MU): Never Smoked Tobacco Have You Smoked in the Last Year: No Review of Systems Negative: Fever Positive: Chest Pain Positive: Shortness Of Breath Positive: Abdominal Pain, Nausea. Negative: Vomiting, Diarrhea All Other Systems Reviewed And Are Negative: Yes Physical Exam Triage Information Reviewed: Yes Vital Signs On Initial Exam: Initial Vitals Temp Pulse Resp BP Pulse Ox 98.1 F 76 16 158/90 99 01/08/18 18:20 01/08/18 18:20 01/08/18 18:20 01/08/18 18:20 01/08/18 18:20 Vital Signs Reviewed: Yes Appearance: Positive: Well-Appearing Skin: Positive: Warm, Dry Head/Face: Positive: Normal Head/Face Inspection Eyes: Positive: Normal, Conjunctiva Clear ENT: Positive: Pharynx normal Respiratory/Lung Sounds: Positive: Clear to Auscultation Cardiovascular: Positive: Normal, RRR Abdomen Description: Positive: Soft, Other: - tenderness epigastric pain Bowel Sounds: Positive: Present Musculoskeletal: Positive: Normal Neurological: Positive: Normal Psychiatric: Positive: Normal Diagnostics - Vital Signs Vital Signs Temp Pulse Resp BP Pulse Ox 01/08/18 18:20 98.1 F 76 16 158/90 99 - Laboratory Lab Results: Lab Results 01/08/18 01/08/18 01/08/18 Range/Units 19:29 19:32 19:32 WBC 12.5 H (3.5-10.8) 10^3/ul RBC 4.54 (4.00-5.40) 10^6/ul Hgb 12.8 (12.0-16.0) g/dl Hct 39 (35-47) % MCV 85 (80-97) fL MCH 28 (27-31) pg MCHC 33 (31-36) g/dl RDW 16 H (10.5-15) % Plt Count 213 (150-450) 10^3/ul MPV 9.0 (7.4-10.4) fL Neut % (Auto) 85.5 H (38-83) % Lymph % (Auto) 8.2 L (25-47) % [place] % (Auto) 5.2 (0-7) % Eos % (Auto) 0.8 (0-6) % Baso % (Auto) 0.3 (0-2) % Absolute Neuts (auto) 10.7 H (1.5-7.7) 10^3/ul Absolute Lymphs (auto) 1.0 (1.0-4.8) 10^3/ul Absolute Monos (auto) 0.7 (0-0.8) 10^3/ul Absolute Eos (auto) 0.1 (0-0.6) 10^3/ul Absolute Basos (auto) 0 (0-0.2) 10^3/ul Absolute Nucleated RBC 0 10^3/ul Nucleated RBC % 0 D-Dimer, Quantitative < 200 (Less Than 230) ng/mL Sodium (135-145) mmol/L Potassium (3.5-5.0) mmol/L Chloride (101-111) mmol/L Carbon Dioxide (22-32) mmol/L Anion Gap (2-11) mmol/L BUN (6-24) mg/dL Creatinine (0.51-0.95) mg/dL Est GFR ( Amer) (>60) Est GFR (Non-Af Amer) (>60) BUN/Creatinine Ratio (8-20) Glucose (70-100) mg/dL Calcium (8.6-10.3) mg/dL Total Bilirubin (0.2-1.0) mg/dL AST (13-39) U/L ALT (7-52) U/L Alkaline Phosphatase (34-104) U/L Troponin I (<0.04) ng/mL C-Reactive Protein (<8.01) mg/L Total Protein (6.4-8.9) g/dL Albumin (3.2-5.2) g/dL Globulin (2-4) g/dL Albumin/Globulin Ratio (1-3) Lipase (11.0-82.0) U/L Urine Color Yellow Urine Appearance Cloudy Urine pH 6.0 (5-9) Ur Specific [place] 1.011 (1.010-1.030) Urine Protein Negative (Negative) Urine Ketones Negative (Negative) Urine Blood Negative (Negative) Urine Nitrate Negative (Negative) Urine Bilirubin Negative (Negative) Urine Urobilinogen Negative (Negative) Ur Leukocyte Esterase Trace A (Negative) Urine WBC (Auto) Trace(0-5/hpf) (Absent) Urine RBC (Auto) Trace(0-2/hpf) (Absent) Ur Squamous Epith Cells Present A (Absent) Urine Bacteria 1+ A (Absent) Urine Glucose Negative (Negative) 01/08/18 Range/Units 19:32 WBC (3.5-10.8) 10^3/ul RBC (4.00-5.40) 10^6/ul Hgb (12.0-16.0) g/dl Hct (35-47) % MCV (80-97) fL MCH (27-31) pg MCHC (31-36) g/dl RDW (10.5-15) % Plt Count (150-450) 10^3/ul MPV (7.4-10.4) fL Neut % (Auto) (38-83) % Lymph % (Auto) (25-47) % Living[place] % (Auto) (0-7) % Eos % (Auto) (0-6) % Baso % (Auto) (0-2) % Absolute Neuts (auto) (1.5-7.7) 10^3/ul Absolute Lymphs (auto) (1.0-4.8) 10^3/ul Absolute Monos (auto) (0-0.8) 10^3/ul Absolute Eos (auto) (0-0.6) 10^3/ul Absolute Basos (auto) (0-0.2) 10^3/ul Absolute Nucleated RBC 10^3/ul Nucleated RBC % D-Dimer, Quantitative (Less Than 230) ng/mL Sodium 137 (135-145) mmol/L Potassium 3.9 (3.5-5.0) mmol/L Chloride 105 (101-111) mmol/L Carbon Dioxide 28 (22-32) mmol/L Anion Gap 4 (2-11) mmol/L BUN 12 (6-24) mg/dL Creatinine 0.52 (0.51-0.95) mg/dL Est GFR ( Amer) 160.6 (>60) Est GFR (Non-Af Amer) 132.7 (>60) BUN/Creatinine Ratio 23.1 H (8-20) Glucose 111 H (70-100) mg/dL Calcium 9.3 (8.6-10.3) mg/dL Total Bilirubin 0.50 (0.2-1.0) mg/dL AST 39 (13-39) U/L ALT 26 (7-52) U/L Alkaline Phosphatase 117 H (34-104) U/L Troponin I 0.00 (<0.04) ng/mL C-Reactive Protein 4.16 (<8.01) mg/L Total Protein 7.3 (6.4-8.9) g/dL Albumin 4.0 (3.2-5.2) g/dL Globulin 3.3 (2-4) g/dL Albumin/Globulin Ratio 1.2 (1-3) Lipase < 10 L (11.0-82.0) U/L Urine Color Urine Appearance Urine pH (5-9) Ur Specific [place] (1.010-1.030) Urine Protein (Negative) Urine Ketones (Negative) Urine Blood (Negative) Urine Nitrate (Negative) Urine Bilirubin (Negative) Urine Urobilinogen (Negative) Ur Leukocyte Esterase (Negative) Urine WBC (Auto) (Absent) Urine RBC (Auto) (Absent) Ur Squamous Epith Cells (Absent) Urine Bacteria (Absent) Urine Glucose (Negative) Result Diagrams: 01/08/18 19:32 01/08/18 19:32 Lab Statement: Any lab studies that have been ordered have been reviewed, and results considered in the medical decision making process. - Radiology chest Radiology Interpretation Completed By: ED Physician Summary of Radiographic Findings: nad - CT abd CT Interpretation Completed By: Radiologist Summary of CT Findings: IMPRESSION: No acute intra-abdominal findings. - EKG No standard instances Cardiac Rate: NL EKG Rhythm: Sinus Rhythm EKG Comparison: No Significant Change Summary of EKG Findings: sinus rhythm Re-Evaluation - Re-Evaluation First Eval Re-Evaluation Time: 21:40 Change: Improved Comment: feeling better after toradol GIGU Course/Dx - Course Course Of Treatment: 37-year-old female presents with epigastric pain today. She also states she has been having chest pain and shortness of breath. She states the pain radiates to her back. She states feels similar to before she had her gallbladder removed. States she had her gallbladder removed 2 weeks ago. She denies any fevers. Admits to nausea but no vomiting. She admits to heartburn. No diarrhea or constipation. She has a follow-up with the surgeon tomorrow. Has had a normal appetite. No blood in her stool. Is not on control. no rash. No pain or swelling in calf muscles. No recent travel. On exam tenderness in epigastric region. Lungs CTA. Heart regular rate and rhythm. EKG sinus rhythm similar to previous. Chest x-ray read by me as normal. Labs white blood cell count is elevated. CRP is normal. troponin normal. d-dimer neg. CT abdomen and pelvis normal. Discussed with epigastric pain and heart burn will treat with short course of omeprazole for potential gastritis. Told to keep follow-up with surgery tomorrow. will wait for final culture for urine as has no urinary symptoms at this time. Patient understands and agrees with plan. - Diagnoses Differential Diagnoses - Female: Gastritis, Urinary Tract Infection, Other - choledoliathesis Provider Diagnoses: Abdominal pain, Chest pain Discharge - Sign-Out/Discharge Documenting (check all that apply): Patient Departure - Discharge Plan Condition: Good Disposition: HOME Prescriptions: Omeprazole CAP* [Prilosec CAP* 20 MG] 20 mg PO DAILY #13 cap Patient Education Materials: Abdominal Pain (ED) Referrals: Sharita Boland MD [Primary Care Provider] - Additional Instructions: will try course of omeprazole once a day for 13 days Take tyenlol as needed for pain Follow up with primary within 5 days Return to ED if develop any new or worsening symptoms - Billing Disposition and Condition Condition: GOOD Disposition: Home
[2018-01-08 22:08] VITALS: BP 129/76
== END | disposition home or self-care (01) ==
LOC: ED 18:18
DX: R10.13 Epigastric pain (principal); R07.9 Chest pain, unspecified; R11.0 Nausea
CPT/HCPCS: 36415; 71046; 74177; 80053; 81003; 81015; 83690; 84484; 85025; 85379; 86140; 87086; 93005; 96374; 96375; 99283; A9270-GY; J1885; J2405; Q9967

== ENCOUNTER → 2018-01-13 13:41 | Emergency (ER) | payer OTHER, MEDICAID ==
[2018-01-13 13:50] VITALS: BP 158/96
--- OUTSIDE RECORDS SUMMARY | 2018-01-13 14:01 | XMS REPORT ---
:1980 External Reference #:[id number] Author Organization [employer] Address [address] [place] [address] Phone [phone] Care Team Providers Name Role Phone Sharita Boland MD Primary Care Physician Unavailable Payers Type Date Identification Numbers Payment Provider Subscriber Commercial Policy Number: [id number] [facility] Nenita Weber Group Number: [id number] [facility] [id number] Group Name: [place] [address] PayID: [id number] Problems Description No Information Family History Date Family Member(s) Problem(s) Comments General Diabetes General Hypertension General Heart Disease General Cancer Social History Type Date Description Comments Marital Status Lives 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 14 Days Multiple 0 Active Tablets 1 by mouth Unknown Vitamin 000 every day Allergy 24-HR Active Tablets 1 tb daily Unknown 000 Vital Signs Date Vital Result Comment 01/09/2018 Heart Rate 80 /min Respiratory Rate 18 /min Body Temperature 98.0 F 12/31/2017 Heart Rate 72 /min BP Systolic [...] [address]: Albaro Okeefe MD Acct: [id number] Unit: [id number] AGE: 37 Location: OR Re12/24/17 SEX: F Status: REG [facility] SPEC: [id number] [place]: 12/24/171245 [facility] DR: Albaro Okeefe MD REQ: [id number] RECD: 12/24/177421 STATUS: SOUT _ ORDERED: LEVEL 3 FINAL [...] and the wall thickness averages 0.1 cm. 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 Signed by and Reported on: Sparkle Sheehan MD 12/25/17 1556 END OF REPORT DEPARTMENT OF PATHOLOGY, [address] [place] [address] Juan Quesada M.D. Director [facility] # [id number] 2 SEE RESULT BELOW Name: NENITA WEBER : [address]: Juventino Guerin MD Acct: [id number] Unit: [id number] AGE: 36 Location: WOUND Re05/23/17 SEX: F Status: REG REF SPEC: [id number] [place]: 05/23/17-1114 [facility] DR: uJventino Guerin MD REQ: [id number] RECD: 05/23/17 STATUS: BHARGAVI [facility] DR: Sharita Boland MD _ SOURCE: WOUND [...] CONTINUED ON NEXT PAGE DEPARTMENT OF PATHOLOGY, [address] [place] [address] Juan Quesada M.D. Director [facility] # [id number] Patient: NENITA WEBER [id number] (Continued) Specimen: [id number] Collected: 05/23/17-1114 Received: 05/23/17-114 (Continued) Procedure Result Reported Site Wound/Misc Culture Final (continued) 05/25/17- 1121 1. STREP AGALACTIAE - (GROUP B) (continued) M.I.C. RX --------- ------ Cefazolin-Deduced S * These antibiotics are not available in the [facility] Formulary Contact the Microbiology Department for any additional antibiotic reporting. * ML - Main Lab . END OF REPORT DEPARTMENT OF PATHOLOGY, [address] [place] [address] Juan Quesada M.D. Director [facility] # [id number] Procedures Date CPT Code Description Status 12/24/2017 51191 Laparoscopy Cholecystectomy Completed 12/24/2017 26020 Laparoscopy Cholecystectomy Completed Encounters Type Date Location Provider CPT E/M Dx Office Visit 12/06/2017 [facility] [place], [address] K80.20 10:45a [facility] FACS Office Visit 06/11/2017 [facility]ventino Guerin, [address] T81.32xD 10:30a [facility] Claus B35.4 O90.81 Office Visit 06/04/2017 10:00a [facility] Juventino Guerin, [address] T81.32xA AT [facility] O90.81 B35.4 Office Visit 05/28/2017 10:15a [facility] Juventino AlexZachary Guerin, [address] T81.32xA AT [facility] B35.4 O90.81 Office Visit 05/23/2017 10:45a [facility]ino Guerin, [address] T81.32xA AT [facility] B35.4 O90.81 Office Visit 05/16/2017 2:45p [facility] Juventino Guerin, [address] T81.32xA AT [facility] O90.81 Plan of Care Future Appointment(s):01/16/2018 1:30 pm - Mukesh Bach MD, FACS at [facility]01/09/2018 - Shad Bowen, PAK80.20 Calculus of gallbladder w/o cholecystitis w/o obstructionFollow up:5 days
== END | disposition left against medical advice (07) ==
LOC: ED 13:41
DX: R07.89 Other chest pain (principal); Z53.21 Procedure and treatment not carried out due to patient leaving prior to being seen by health care provider

== ENCOUNTER 2018-08-19 07:06 | Inpatient (IN) | payer BC ==
[~2018-08-19 07:06] MED LIST changes: +Buffered Lidocaine 1% SYRIN* 1 ML/SYRINGE INTRADERM ONE; -Iohexol 300* (CONTRAST) 10 ML SDV IV ONE; -Ketorolac INJ* 30 MG/ML 1 ML VIAL IV PUSH ONE; +Lactated Ringers 1000 ML Bag* 1,000 ML IV SCH; -Omeprazole CAP* 20 MG PO ONE; -Ondansetron INJ* 2 MG/ML VIAL IV ONE; -Pantoprazole IV* 40 MG IV ONE
[2018-08-19] MEDS ORDERED: Famotidine IV* 10 MG/ML 2 ML (20 mg) ONE (07:25)
[2018-08-19] MEDS ORDERED: Heparin VIAL(*) 5000 UNITS/ML VIAL (FIVE THOUSAND) ONE (07:33)
[2018-08-19] MEDS ORDERED: ceFAZolin 1 GM ADVAN(*) 1 GM ADDV.VIAL IVPB ONE (07:33)
[2018-08-19] MEDS ORDERED: ceFAZolin 2 GM in NS PREMIX(*) 2 GM/100 ML BAG IVPB ONE (07:34)
[2018-08-19] MEDS ORDERED: fentaNYL* 50 MCG/ML 2 ML VIAL (100 MCG VIAL) ONE ×4 (08:28→12:54)
[2018-08-19] MEDS ORDERED: Midazolam* 1 MG/ML 2 ML VIAL (2 MG) ONE (08:28)
[2018-08-19] MEDS ORDERED: Methylene Blue 0.5 %* 50 MG/10 ML AMP IV ONE (08:57)
[2018-08-19] MEDS ORDERED: Bupivacaine 0.25% W/EPI* 10 ML SDV ONE ×3 (08:57→08:59)
[2018-08-19] MEDS ORDERED: Ketorolac INJ* 30 MG/ML 1 ML VIAL ONE (09:31)
[2018-08-19] MEDS ORDERED: Lidocaine 2% PF * 5 ML VIAL ONE (09:31)
[2018-08-19] MEDS ORDERED: Propofol* 10 MG/ML 20 ML BTL ONE (09:31)
[2018-08-19] MEDS ORDERED: Succinylcholine* 20 MG/ML 10 ML VIAL ONE (09:31)
[2018-08-19] MEDS ORDERED: Ondansetron INJ* 2 MG/ML VIAL ONE ×2 (09:31→12:03)
[2018-08-19] MEDS ORDERED: Dexamethasone IV* 4 MG/ML 1 ML (4 MG) ONE (09:31)
[2018-08-19] MEDS ORDERED: Cisatracurium* 2 MG/ML MDV 5 ML ONE (09:32)
[2018-08-19] MEDS ORDERED: Acetaminophen IV 1GM/100ML * 100 ML ONE (09:51)
[2018-08-19] MEDS ORDERED: fentaNYL* 50 MCG/ML 2 ML VIAL (100 MCG VIAL) IV PRN (09:55)
[2018-08-19] MEDS ORDERED: DiMENhydriNATE IV* 50 MG/ML VIAL IV PUSH PRN (09:55)
[2018-08-19] MEDS ORDERED: Levalbuterol 0.63MG/3ML NEB* UNIT OF USE INH PRN (09:55)
[2018-08-19] MEDS ORDERED: PROCHLORPERAZINE INJ 5 MG/ML 2 ML VIAL IV PRN (09:55)
[2018-08-19] MEDS ORDERED: Ondansetron INJ* 2 MG/ML VIAL IV PRN ×2 (09:55→12:25)
[2018-08-19] MEDS ORDERED: Naloxone* 0.4 MG/ML 1 ML VIAL IV PRN (09:55)
[2018-08-19] MEDS ORDERED: diPHENhydraMINE IV* 50 MG/ML 1 ml VIAL (BENADRYL) IV PRN (09:55)
[2018-08-19] MEDS ORDERED: PROCHLORPERAZINE INJ 5 MG/ML 2 ML VIAL ONE (12:03)
[2018-08-19] MEDS: fentaNYL* 50 MCG/ML 2 ML VIAL (100 MCG VIAL) IV PRN ×4 (12:10→13:36)
--- NOTE | 2018-08-19 12:21 | OP ---
Operative Report - Blank - Operative Report Date of Operation: 08/19/18 Note: Brief Operative Note Preop Dx: morbid obesity Postop Dx: same Procedure: Laparoscopic Qing en Y gastric bypass Anesthesia: GET Surgeon: [place] Traffic Chief: JOSHUA Bowen Fluids: 1500 ml RL EBL: < 50 ml Specimen: none Drains: none Findings: dictated
[2018-08-19] MEDS ORDERED: DiMENhydriNATE IV* 50 MG/ML VIAL ONE (12:24)
[2018-08-19] MEDS ORDERED: HYDROmorphone INJ1* 1 MG/ML SYRINGE IV SLOW PU PRN ×2 (12:25)
[2018-08-19] MEDS ORDERED: Acetaminophen ADULT LIQ* 650 MG/20.3 ML UDC PO PRN (12:25)
[2018-08-19] MEDS ORDERED: diPHENhydraMINE IV* 50 MG/ML 1 ml VIAL (BENADRYL) SLOW PUSH PRN (12:25)
[2018-08-19] MEDS ORDERED: Mometasone 110 MCG MDI INH PRN (12:29)
[2018-08-19] MEDS ORDERED: hydrALAZINE IV* 20 MG/ML VIAL ONE (13:08)
[2018-08-19] MEDS: hydrALAZINE IV* 20 MG/ML VIAL IV SLOW PU PRN ×2 (13:10→13:35)
[2018-08-19] MEDS: Lactated Ringers 1000 ML Bag* 1,000 ML IV SCH ×2 (15:38→21:13)
[2018-08-19] MEDS: Heparin VIAL(*) 5000 UNITS/ML VIAL (FIVE THOUSAND) SUBCUT SCH ×2 (16:12→22:27)
--- NOTE | 2018-08-19 16:27 | CONS ---
[facility] MEDICINE CONSULTATION REPORT: DATE OF CONSULT: 08/19/18 PROVIDER: Pat Hayes NP ATTENDING PHYSICIAN: Dr. Okeefe. CONSULTING PHYSICIAN: Dr. Yanet Rudolph (dictated by Pat Hayes NP). REASON FOR CONSULT: Hypertension postoperatively. HISTORY OF PRESENT ILLNESS: Ms. Weber is a 37-year-old female with a history of obesity, who presented to [facility] for an elective gastric bypass with Dr. Okeefe. In the immediate preoperative period, the patient had no complaints. Please see dictated H and P from Sparkle Craig NP for complete details. In brief, the patient postop in the PACU had hypertension. Preoperatively, the patient did have a normal blood pressure of 124/80 and 126/ 75. Postoperatively, her blood pressure was running in the 150s to 170s/90s to 103. Due to the consistent hypertension, we were asked to see and evaluate the patient to help co- manage her hypertension. PAST MEDICAL HISTORY: Significant for seasonal allergies, obesity, acid reflux. PAST SURGICAL HISTORY: 1. Spinal fusion. 2. Cholecystectomy. HOME MEDICATIONS: 1. Omeprazole 20 mg p.o. daily. 2. Multivitamin 1 tab p.o. daily. 3. Fluticasone 50 mcg daily. 4. Cetirizine 10 mg p.o. daily p.r.n. ALLERGIES: She has allergy to TREE NUTS. FAMILY HISTORY: Mother with a history of hypertension and diabetes. No reported history of cancer within the family. Father with no medical conditions. SOCIAL HISTORY: The patient denies any tobacco, alcohol, or illicit drug use. She is . She has 2 children. Surrogate decision maker in the event she is unable to make her own decisions is her mother or . She is a full code. REVIEW OF SYSTEMS: The patient denies any fever, chills, unintended weight loss. Denies any chest pain, edema, cough, hemoptysis, or shortness of breath. No nausea, vomiting, or diarrhea. She does complain of generalized abdominal pain rated at a 6 postoperatively. No gross hematuria, dysuria, focal weakness , or sensory loss. Denies any dysphagia, arthralgias, myalgias. She does report some scabbed areas to her knee and bilateral forearms that are healing without surrounding erythema or signs of infection. Denies any psychosis or anxiety. PHYSICAL EXAM: The patient is a 37-year-old female. She is resting in her hospital bed. She is in no acute distress. She is alert, but drowsy. HEENT: Head is atraumatic, normocephalic. Eyes: EOMs are intact. Sclerae anicteric and not pale. Oral mucosa appeared to be moist. Neck is supple. Lungs are clear to auscultation bilaterally. No wheezes, rales, or rhonchi. Cardiac: S1 , S2, regular rate and rhythm. No murmurs, rubs, or gallops. Abdomen is soft. She does have some tenderness. No bleeding noted. Bowel sounds are present x4. Musculoskeletal: She is able to move all 4 extremities. There is no clubbing or cyanosis. Pedal pulses are +2 bilaterally. Skin: She does have an abrasion noted to her left knee and scabbed areas noted to bilateral forearms that are healing. Neurologic: She is awake, alert and oriented x3. She is drowsy. There is no gross focal deficits. DIAGNOSTIC STUDIES/LAB DATA: Blood work from 08/12/18, WBCs were 6.3, RBCs 3.84 , hemoglobin 11.5, hematocrit was 34, platelet count was 212. Sodium 138, potassium 4.1, chloride 105, carbon dioxide was 28, anion gap was 5, BUN was 20 , creatinine 0.57, glucose was 90. ASSESSMENT AND PLAN: Ms. Weber is a 37-year-old female with past medical history significant for acid reflux and obesity, who presented for an elective gastric bypass with Dr. Okeefe. Postoperatively, the patient had hypertension , so we were asked to consult. Our recommendations are as follows: 1. Status post gastric bypass surgery. The patient will continue pain management per Surgery. 2. Hypertension. The patient was normotensive prior to surgery with a blood pressure of 126/75 and 124/80. Postoperatively, the patient reports that she had significant amount of abdominal pain and was hypertensive with blood pressure in the 140s to 170s. I suspect that her hypertension is related to her pain. I would recommend good pain control. Could add hydralazine 5 mg IV q.6 hours as needed for systolic blood pressure over 180. I suspect that with salomón control her blood pressure will normalize. 3. Acid reflux. We will continue omeprazole as previously prescribed when able. 4. FEN: Diet per Surgery. 5. Code status: She is full code. 6. DVT prophylaxis: She can have SCDs and heparin subcu as per Surgery. TIME SPENT: Time spent on this consultation was approximately 45 minutes, greater than half that time was spent at the bedside reviewing the events leading thus far to her hospitalization, performing physical exam, and reviewing my plan of care. I have discussed this with my attending, Dr. Yanet Rudolph, she is in agreement with my plan. PAT HAYES, ASSEMBLER [employer] [id number]/[facility] #: [id number] ROBER
--- NOTE | 2018-08-19 20:55 | OP ---
CC: [facility]; Sharita Boland MD* OPERATIVE REPORT: DATE OF OPERATION: 08/19/18 - Inpatient, room SSU 352-01. DATE OF : 80 SURGEON: Albaro Okeefe MD AIRCRAFT PARTS ASSEMBLER: JOSHUA Pak ANESTHESIOLOGIST: Taco Infante MD ANESTHESIA: General endotracheal. PRE-OP DIAGNOSIS: Clinically severe obesity. POST-OP DIAGNOSIS: Clinically severe obesity. OPERATIVE PROCEDURE: Laparoscopic Qing-en-Y gastric bypass. ESTIMATED BLOOD LOSS: Less than 50 mL. IV FLUIDS: 1.5 L crystalloid. SPECIMENS: None. DRAINS: None. COMPLICATIONS: None. COUNTS: The instrument, needle, and sponge counts were correct. DESCRIPTION OF PROCEDURE: The patient was brought to the operating room and placed on the table supine. Sequential compression devices were placed on both lower extremities. General anesthesia was administered. The abdomen was prepped and draped in the usual sterile fashion. She received appropriate intravenous antibiotics. Time-out was performed. Local anesthetic was infiltrated into the skin and soft tissue prior to making each incision. Entry into the abdomen was through a left upper quadrant incision accommodating a 12-mm optical trocar. After accessing the peritoneal cavity, 12-mm bladeless trocars were placed in the supraumbilical midline and in the right upper quadrant. 5-mm trocars were placed in the right upper quadrant medially and left upper quadrant laterally. A Julio liver retractor was placed percutaneously in the subxiphoid position and used to elevate the left lobe of the liver. The liver did appear to be fatty infiltrated and slightly enlarged. The gastric anatomy was inspected and the patient was noted to have a small hiatal hernia. This was reduced and the gastroesophageal ligament was divided with LigaSure. The dissection then proceeded along the area of the left herberth of the diaphragm bluntly with LigaSure. Next, the lesser sac was entered via perigastric dissection on the lesser curvature and upon entering the lesser sac, the gastric pouch was fashioned first with transverse firing of Endo JAY stapler with a 45-mm bobby cartridge, then with 2 firings of the Endo JAY stapler with bobby cartridges vertically toward the angle of His. A gastric pouch was created and this approximated 15 to 30 mL volume. The staple lines were noted to be intact and hemostatic. Next, the omentum and transverse colon were retracted cephalad. The ligament of Treitz was identified. The jejunum was measured out 50 cm and the loop was brought in proximity to the gastric pouch and it was sutured to the left lateral staple line with interrupted 2-0 silks. A gastrojejunal anastomosis was performed utilizing the Endo JAY stapler with a 30-mm cartridge and then the common enterotomy was run closed over a 34-Sudanese gastric lavage tube. A running stitch of 3-0 PDS was used to close this enterotomy. The omega loop was then divided to the left of the anastomosis to create the Qing limb. The gastrojejunal anastomosis was tested with methylene blue dye instilled through an orogastric tube with distal occlusion on the Qing limb. No leaks were identified. The Qing limb was then measured out 75 cm and at this point, a functional end-to-side jejunojejunostomy was created with a 60-mm bobby Endo JAY stapler cartridge and again the common enterotomy was run closed with 3 -0 PDS running this to and fro and tying it to itself. The mesenteric defect at the jejunojejunostomy was closed with interrupted 3-0 silks. The retro- alimentary limb mesentery defect was narrowed by running a 3-0 silk down the peritoneum of the Qing limb and up the mesentery of the transverse colon and tightening this down. The 2 anastomoses were inspected. There was some bleeding from the staple line at the jejunojejunostomy and this was controlled with endoscopic clip placement. Hemostasis having been assured, the Julio liver retractor was removed and the ports were removed under direct visualization and carbon dioxide was released. The incisions were closed with 4 -0 Monocryl in a subcuticular fashion to approximate the skin. DermaFlex was applied to the sites. The patient tolerated the procedure well, was extubated and transferred to Recovery in stable condition. [id number]/[facility] #: [id number] [facility] HOSPITALTammie
[2018-08-19] MEDS: Famotidine IV* 10 MG/ML 2 ML (20 mg) IV SLOW PU SCH (22:26)
[2018-08-19] MEDS: Ketorolac INJ* 30 MG/ML 1 ML VIAL IV PRN (22:27)
--- NOTE | 2018-08-20 01:07 | PN ---
Hospitalist Progress Note Date of Service: 08/19/18 patient c/o upper epigastric pain radiating to her chest and back. reports that the pain in her back improves with walking. EKG obtained and WNL. Suspect this is related to gas pain from her surgery. Patient is without nausea or vomiting. Denies shortness of breath or palpitations. no signs of hypoxia. respirations easy and even. Will continue to monitor.
[2018-08-20] MEDS: Lactated Ringers 1000 ML Bag* 1,000 ML IV SCH (04:09)
[2018-08-20] MEDS: Ketorolac INJ* 30 MG/ML 1 ML VIAL IV PRN ×3 (05:35→19:54)
[2018-08-20] MEDS: Heparin VIAL(*) 5000 UNITS/ML VIAL (FIVE THOUSAND) SUBCUT SCH ×3 (05:38→21:52)
[2018-08-20] MEDS ORDERED: Cetirizine* 10 MG TAB PO PRN (08:10)
[2018-08-20] MEDS: Famotidine IV* 10 MG/ML 2 ML (20 mg) IV SLOW PU SCH ×2 (09:06→19:56)
[2018-08-20] MEDS: Pantoprazole TAB * 40 MG TAB PO SCH (09:08)
[2018-08-20] MEDS: D5W 1/2 NS KCl 20 Meq 1000 ML* 1,000 ML IV SCH ×2 (11:36→19:45)
--- NOTE | 2018-08-20 12:31 | PN ---
Progress Note - Progress Note Date of Service: 08/20/18 Note: S: POD #1. Doing well. Sidra sofie clears well thus far. No N/V. Passing flatus. Ambulating. No BP issues overnight. O: Vital Signs - 8 hr 08/20/18 08/20/18 08/20/18 08:00 08:02 11:47 Temperature 98.5 F 97.4 F Pulse Rate 57 57 Respiratory 18 20 18 Rate Blood Pressure 122/79 132/83 (mmHg) O2 Sat by Pulse 100 96 100 Oximetry Intake and Output Last 24 Hours 08/18/18 08/19/18 08/20/18 08/21/18 06:59 06:59 06:59 06:59 Intake Total 1971 990 Output Total 5000 650 Balance -3028 340 Weight 289 lb 9.6 oz Intake: IV Fluids 1971 990 LR 1971 990 Oral 0 Output: Urine 5000 650 Other: # Bowel Movements 0 Gen: appears comfortable; NAD Heart: reg Lungs: clear Abd: +BS; lap sites: gen clean and dry; one small area of sang drainage; soft; mild incisional tenderness only A: s/p lap RYGB, doing well P: cont sofie clears; ambulate; she wishes to stay for tonight
--- NOTE | 2018-08-20 17:09 | PN ---
Subjective Date of Service: 08/20/18 Interval History: seen in room 352. denies any chest pain or headache. BP trend reviewed and been within 120's and 110's. tolerating clear liquid Past Medical History: Unchanged from Admission Objective Active Medications: Acetaminophen (Tylenol Adult Liq*) 650 mg PO Q6H PRN PRN Reason: Temp > 101 F Or Mild Pain Last Admin: 08/20/18 14:01 Dose: 650 mg Hydrocodone Bitart/Acetaminophen (Nortab 7.5/325 Liq*) 15 ml PO Q6H PRN PRN Reason: PAIN Cetirizine HCl (Zyrtec*) 10 mg PO DAILY PRN PRN Reason: Allergies Last Admin: 08/20/18 09:08 Dose: 10 mg Diphenhydramine HCl (Benadryl Iv*) 25 mg SLOW PUSH Q6H PRN PRN Reason: ITCHING Famotidine (Pepcid Iv*) 20 mg IV SLOW PU BID [facility] Last Admin: 08/20/18 09:06 Dose: 20 mg Heparin Sodium (Porcine) (Heparin Vial(*)) 5,000 units SUBCUT Q8HR [facility] Last Admin: 08/20/18 14:02 Dose: 5,000 units Hydromorphone HCl (Dilaudid Inj1s*) 0.5 mg IV SLOW PU Q3H PRN PRN Reason: Pain - moderately Severe Hydromorphone HCl (Dilaudid Inj1s*) 1 mg IV SLOW PU Q3H PRN PRN Reason: PAIN - SEVERE Potassium Chloride/Dextrose (D5w 1/2 Ns Kcl 20 Meq 1000 Ml*) 1,000 mls @ 125 mls/hr IV PER RATE [facility] Last Admin: 08/20/18 11:36 Dose: 125 mls/hr Ketorolac Tromethamine (Toradol Inj*) 30 mg IV Q6H PRN PRN Reason: PAIN Stop: 08/21/18 12:27 Last Admin: 08/20/18 14:50 Dose: 30 mg Mometasone Furoate (Asmanex 110 Mcg Mdi *) 110 puff INH DAILY PRN PRN Reason: Allergies Ondansetron HCl (Zofran Inj*) 4 mg IV Q6H PRN PRN Reason: NAUSEA/VOMITING Pantoprazole Sodium (Protonix Tab*) 40 mg PO QAM [facility] Last Admin: 08/20/18 09:08 Dose: 40 mg Vital Signs - 8 hr 08/20/18 08/20/18 11:47 15:44 Temperature 97.4 F 97.7 F Pulse Rate 57 51 Respiratory 18 16 Rate Blood Pressure 132/83 118/67 (mmHg) O2 Sat by Pulse 100 97 Oximetry Oxygen Devices in Use Now: None Appearance: resting comfortble Eyes: No Scleral Icterus Ears/Nose/Mouth/Throat: NL Teeth, Lips, Gums Neck: NL Appearance and Movements; NL JVP, Trachea Midline Respiratory: Symmetrical Chest Expansion and Respiratory Effort Cardiovascular: NL Sounds; No Murmurs; No JVD Neurological: Alert and Oriented x 3 Assess/Plan/Problems-Billing Assessment: - Patient Problems (1) Benign reactive hypertension Current Visit: Yes Status: Acute Code(s): I10 - ESSENTIAL (PRIMARY) HYPERTENSION SNOMED Code(s): 11340229 Comment: - Her Elevated BP yesterday post operatively most likely was reactive due to pain and anesthesia. - It has been resolved since with normal BP - She can be discharged home from medical point of view. No need to have her on antihypertensive medications - she can follow up with her PCP. - Medicine will sign off please call with any questions
[2018-08-21] MEDS: HYDROcodone/ACET. 7.5/325 LIQ* 15 ML UDC PO PRN ×2 (04:29→10:35)
[2018-08-21] MEDS: D5W 1/2 NS KCl 20 Meq 1000 ML* 1,000 ML IV SCH (04:30)
[2018-08-21] MEDS: Heparin VIAL(*) 5000 UNITS/ML VIAL (FIVE THOUSAND) SUBCUT SCH (04:31)
[2018-08-21 07:45] VITALS: BP 122/73
[2018-08-21] MEDS: Pantoprazole TAB * 40 MG TAB PO SCH (08:43)
[2018-08-21] MEDS: Famotidine IV* 10 MG/ML 2 ML (20 mg) IV SLOW PU SCH (08:43)
--- NOTE | 2018-08-21 08:48 | PN ---
Progress Note - Progress Note Date of Service: 08/21/18 Note: S: POD #2. Doing well. Seen with Dr. Okeefe. O: See discharge summary A/P: s/p Lap Qing en y Gastric bypass, doing well. Home today. Instructions reviewed. f/u at [facility] as sched next wk
--- NOTE | 2018-08-21 09:44 | DS ---
[facility]: DATE OF ADMISSION: 08/19/18 DATE OF DISCHARGE: 08/21/18 ATTENDING SURGEON: Dr. Albaro Okeefe.* (DICTATED BY JOSHUA JIMENEZ) HOSPITAL COURSE: Please refer to admission history and physical and operative note for details. The patient was taken to the operating room on 08/19/18 and underwent laparoscopic Qing-en-Y gastric bypass with Dr. Okeefe. Surgery itself was uneventful. She did, however, have elevated blood pressures in the immediate postop period. A consult was obtained by the hospitalist, but her hypertension appeared to be related primarily to pain and responded well to adequate pain control. She has not had any additional problems with hypertension since admission. The patient was seen in the morning of discharge with Dr. Okeefe. As of the morning of discharge, she is tolerating bariatric clear liquids well and pain is well managed with oral analgesics. PHYSICAL EXAM: Temperature 98, blood pressure 122/73, pulse 53, respirations 16 , room air saturation 98%. General: She appears well and in no acute distress. Heart: Regular rate and rhythm. No murmur noted. Lungs: Clear to auscultation. Abdomen: Laparoscopic incision sites healing well. There is some bruising around the lower midabdominal incision. No evidence of significant hematoma or infection. Abdomen is soft with minor incisional tenderness only. IMPRESSION: Status post laparoscopic Qign-en-Y gastric bypass, doing well and ready for discharge. PLAN: Home today in good condition. She will continue her usual omeprazole. Instructions were reviewed regarding wound care, activity, and bariatric diet. She has an appointment at [facility] next week. She is discharged to home in good condition. JOSHUA JIMENEZ [id number]/[facility] #: [id number] [facility] HEALTHTammie
== END 2018-08-21 11:15 | disposition home or self-care (01) | DRG 403 ==
LOC: AA 07:06 → SSU 14:30
PROVIDERS: ADMIT Surgery; ATTEND Surgery
PROC: 0D164ZA Bypass Stomach to Jejunum, Percutaneous Endoscopic Approach (ICD-10-PCS; principal; 2018-08-19 08:45)
DX: E66.01 Morbid (severe) obesity due to excess calories (principal); E28.2 Polycystic ovarian syndrome; K21.9 Gastro-esophageal reflux disease without esophagitis; I10 Essential (primary) hypertension; R10.13 Epigastric pain; J30.2 Other seasonal allergic rhinitis; Z98.1 Arthrodesis status; F41.9 Anxiety disorder, unspecified; G43.909 Migraine, unspecified, not intractable, without status migrainosus; K44.9 Diaphragmatic hernia without obstruction or gangrene; Z68.41 Body mass index [BMI] 40.0-44.9, adult; Z98.51 Tubal ligation status; Z91.018 Allergy to other foods; Z90.49 Acquired absence of other specified parts of digestive tract; Z83.3 Family history of diabetes mellitus; Z82.49 Family history of ischemic heart disease and other diseases of the circulatory system; Z81.8 Family history of other mental and behavioral disorders; Z80.9 Family history of malignant neoplasm, unspecified; Z83.49 Family history of other endocrine, nutritional and metabolic diseases
CPT/HCPCS: 43644; 93005; A9270-GY; C1776; J0330; J0360; J0690; J0780; J1100; J1240; J1644; J1885; J2250; J2405; J2704; J3010